=== PATIENT | female | born 1960 | race American Indian/Alaskan Native ===

== ENCOUNTER 2017-05-19 09:32 | Outpatient (CLI) | payer OTHER ==
--- NOTE | 2017-05-19 21:54 | XRay Report ---
FINAL REPORT PROCEDURE: XR HAND 2V RT TECHNIQUE: Right hand, two views HISTORY: ARTHRITIS COMPARISON: No prior studies are available for comparison. FINDINGS: There is mild joint space narrowing involving the distal and proximal interphalangeal joints. Small osteophytes are seen at the 1st interphalangeal joint. No cortical erosion is seen. No fracture or dislocation is seen. IMPRESSION: Mild osteoarthritic changes
--- NOTE | 2017-05-19 22:01 | XRay Report ---
FINAL REPORT PROCEDURE: XR CHEST ROUTINE 2V TECHNIQUE: PA and lateral chest radiographs were obtained. CPT 92953 HISTORY: STROKE,HEART DISEASE,HYPERTENSION COMPARISON: No prior studies are available for comparison. FINDINGS: Heart: Normal. Mediastinum/Vessels: Possible tortuous or ectatic aorta. Lungs/Pleural space: No infiltrate, effusion, or pneumothorax. Bony thorax: No acute osseous abnormality. Other: IMPRESSION: Possible tortuous or ectatic aorta. No pulmonary infiltrates.
== END 2017-05-19 09:33 | disposition home or self-care (01) ==
LOC: XRAY 09:32
PROVIDERS: ATTEND Internal Medicine
DX: M19.042 Primary osteoarthritis, left hand (principal); M19.041 Primary osteoarthritis, right hand; E11.9 Type 2 diabetes mellitus without complications; I11.9 Hypertensive heart disease without heart failure; I63.9 Cerebral infarction, unspecified; E78.00 Pure hypercholesterolemia, unspecified
CPT/HCPCS: 71046